=== PATIENT | male | born 1955 | race Native Hawaiian/Other Pacific Islander ===

== ENCOUNTER 2019-09-06 18:09 | Emergency (ER) | payer BC ==
[~2019-09-06] VITALS: Ht 172.7 cm; Wt 81.6 kg
[2019-09-06 18:14] VITALS: BP 134/94; TEMP 98.3
[2019-09-06 19:01] LABS: PLATELET COUNT 384 K/uL (142-355)
[2019-09-06 19:15] LABS: POTASSIUM 3.5 mmol/L (3.6-5.2)
[2019-09-06 19:23] LABS: PARTIAL THROMBOPLASTIN TIME 26.1 SECONDS (24.5-33.6)
== END 2019-09-06 19:56 | disposition still patient (30) ==
LOC: ED 18:09
PROVIDERS: Hospitalist
DX: L03.116 Cellulitis of left lower limb (principal); B95.62 Methicillin resistant Staphylococcus aureus infection as the cause of diseases classified elsewhere
CPT/HCPCS: 36415; 80053; 83605; 85027; 85379; 85610; 85730; 87040; 96365; 96375; 99284; J1885; J2405; J3370

== ENCOUNTER 2019-09-07 14:21 | Inpatient (IN) | payer OTHER ==
[~2019-09-07] VITALS: Ht 172.7 cm; Wt 94.9 kg
[2019-09-07 14:51] VITALS: BP 115/77; TEMP 98.4
[2019-09-07 17:44] LABS: PLATELET COUNT 346 K/uL (142-355)
[2019-09-07 18:31] LABS: POTASSIUM 3.9 mmol/L (3.6-5.2)
[2019-09-07 20:48] VITALS: BP 126/69; TEMP 98.2; Ht 172.7 cm; Wt 94.9 kg
[2019-09-08 00:15] VITALS: BP 111/71; TEMP 98.4
[2019-09-08 03:59] VITALS: BP 113/70; TEMP 98.5
[2019-09-08 08:34] VITALS: BP 105/76; TEMP 98.1
[2019-09-08 12:25] VITALS: BP 102/63; TEMP 97.4
[2019-09-08] MEDS ORDERED: OXYCODONE HCL E20 MG PO (16:55)
[2019-09-08] MEDS ORDERED: GABA300C2 PO (16:56)
[2019-09-08] MEDS ORDERED: DICL75TA4 PO (17:00)
[2019-09-08] MEDS ORDERED: ZANAFLEX2 MG PO (17:01)
[2019-09-08] MEDS ORDERED: DIAZEPAM5 MG/M2 PO (17:02)
[2019-09-08 20:00] VITALS: BP 109/71; TEMP 98.4
[2019-09-08 23:58] VITALS: BP 93/61; TEMP 98.4
[2019-09-09 04:00] VITALS: BP 104/72; TEMP 98.4
[2019-09-09 06:12] LABS: PLATELET COUNT 314 K/uL (142-355)
[2019-09-09 06:48] LABS: POTASSIUM 3.4 mmol/L (3.6-5.2)
[2019-09-09 08:00] VITALS: BP 95/52; TEMP 98.9
[2019-09-09 12:00] VITALS: BP 77/49; TEMP 98.2
[2019-09-09 16:00] VITALS: BP 112/69; TEMP 97.6
[2019-09-09 20:00] VITALS: BP 117/88; TEMP 98.5
[2019-09-09 23:48] VITALS: BP 111/63; TEMP 98.2
[2019-09-10 03:52] VITALS: BP 112/74; TEMP 98.6
[2019-09-10 05:52] LABS: PLATELET COUNT 391 K/uL (142-355)
[2019-09-10 06:04] LABS: POTASSIUM 4.7 mmol/L (3.6-5.2)
[2019-09-10 08:00] VITALS: BP 113/65; TEMP 98.5
[2019-09-10 12:00] VITALS: BP 108/72; TEMP 98.6
[2019-09-10 16:00] VITALS: BP 112/87; TEMP 98.8
[2019-09-10 20:00] VITALS: BP 133/78; TEMP 98.1
[2019-09-11] VITALS (7 sets, daily range): BP systolic 106–121; BP diastolic 62–83; TEMP 98.1–99.3
[2019-09-11 05:31] LABS: PLATELET COUNT 373 K/uL (142-355)
[2019-09-11 05:50] LABS: POTASSIUM 3.5 mmol/L (3.6-5.2)
[2019-09-12 03:55] VITALS: BP 116/78; TEMP 97.8
[2019-09-12 08:00] VITALS: BP 118/71; TEMP 98.2
[2019-09-12 12:00] VITALS: BP 117/76; TEMP 97.9
[2019-09-12 12:51] LABS: PLATELET COUNT 399 K/uL (142-355)
[2019-09-12 16:00] VITALS: BP 137/85; TEMP 98.3
[2019-09-12 20:00] VITALS: BP 134/82; TEMP 98.3
[2019-09-12 23:50] VITALS: BP 125/72; TEMP 97.8
[2019-09-13 04:00] VITALS: BP 105/57; TEMP 98
[2019-09-13 08:00] VITALS: BP 123/79; TEMP 98
[2019-09-13 09:38] LABS: POTASSIUM 3.9 mmol/L (3.6-5.2)
[2019-09-13] MEDS ORDERED: CLINDAMYCIN HC150 MG PO (11:43)
[2019-09-13 12:00] VITALS: BP 135/88; TEMP 97.8
[2019-09-13 15:20] LABS: PLATELET COUNT 453 K/uL (142-355)
== END 2019-09-13 15:00 | disposition home or self-care (01) | DRG 603 ==
LOC: ED 14:21 → MED/SURG 19:03
PROVIDERS: Internal Medicine; ADMIT Emergency Medicine
PROC: 0H9LXZZ Drainage of Left Lower Leg Skin, External Approach (ICD-10-PCS; principal; 2019-09-11)
DX: L02.416 Cutaneous abscess of left lower limb (principal); I25.10 Atherosclerotic heart disease of native coronary artery without angina pectoris; J44.9 Chronic obstructive pulmonary disease, unspecified; L03.116 Cellulitis of left lower limb; G89.4 Chronic pain syndrome; I95.89 Other hypotension; Z72.0 Tobacco use
CPT/HCPCS: 36415; 80048; 80202; 83036; 83605; 84550; 85027; 85651; 86140; 87070; 87077; 87185; 87186; 87205; 96365; 99284; A9576; J1650; J2543; J3370; J3490; Q9963